=== PATIENT | female | born 1975 | race Caucasian/White ===

== ENCOUNTER 2018-09-10 06:52 | Observation (INO) | payer BC ==
[2018-09-07 11:00] VITALS: BMI 24.0
[2018-09-10] MEDS ORDERED: Midazolam HCl 2 mg/2 ml Vial ONE (07:54)
[2018-09-10] MEDS ORDERED: Fentanyl 100 MCG/2 ML VIAL ONE ×4 (07:54→11:32)
[2018-09-10 08:33] LABS: #Basophils 0.1 thou/uL (0.0-0.2); #Eosinphils 0.2 thou/uL (0.0-0.7); #Lymphocytes 1.9 thou/uL (1.20-3.40); #Monocytes 0.3 thou/uL (0.11-0.59); %Eosinophils 3.3 % (0.0-10.0); %Lymphocytes 28.7 % (21.0-51.0); %Monocytes 4.9 % (0.0-10.0); %Neutrophils 62.1 % (42.0-75.0); Hemoglobin 14.6 g/dL (12.0-16.0); Mean Corpuscular HGB CONC 33.4 g/dL (32.0-36.0); Mean Corpuscular Hemoglobin 31.9 pg (27.0-31.0); Mean Corpuscular Volume 95.4 fL (78.0-98.0); Mean Platelet Volume 9.1 fL (7.4-10.4); Platelet Count 207 thou/uL (130-400); RBC Distribution Width 10.6 % (11.5-14.5); Red Blood Cell (RBC) Count 4.57 mill/uL (4.20-5.40); White Blood Cell (WBC) Count 6.4 thou/uL (4.8-10.8)
[2018-09-10 08:52] LABS: Anion Gap 11 mmol/L (10-20); BUN (Urea Nitrogen) 11 mg/dL (7.0-18.7); Calc. Creatinine Clearance 108 mL/min (70-130); Calcium 8.5 mg/dL (7.8-10.44); Carbon Dioxide 22 mmol/L (22-29); Chloride 109 mmol/L (98-107); Estimated GFR-MDRD Greater than 90; Glucose 92 mg/dL (70-105); Potassium 4.4 mmol/L (3.5-5.1); Sodium 138 mmol/L (136-145)
[2018-09-10] MEDS ORDERED: Ondansetron PF 4 MG/2 ML Vial IVP PRN (10:51)
[2018-09-10] MEDS ORDERED: Morphine 4 MG/ML VIAL SLOW IVP PRN (10:51)
[2018-09-10] MEDS ORDERED: diphenhydrAMINE 50 MG CAP PO PRN (10:51)
[2018-09-10] MEDS ORDERED: Methocarbamol 500 MG TAB PO PRN (10:51)
[2018-09-10] MEDS ORDERED: HYDROcodone/Acetaminophen 7.5/325 mg Tablet PO PRN (10:51)
[2018-09-10] MEDS ORDERED: Zolpidem Tartrate 5 MG TAB PO PRN (10:51)
[2018-09-10] MEDS ORDERED: Bisacodyl 10 MG SUPP PR PRN (10:51)
[2018-09-10] MEDS ORDERED: Acetaminophen 500 MG TAB PO PRN (10:51)
[2018-09-10] MEDS ORDERED: traMADol HCl 50 MG TAB PO PRN (10:51)
[2018-09-10] MEDS ORDERED: Morphine 2 MG/ML SYRINGE SLOW IVP PRN (10:51)
[2018-09-10] MEDS ORDERED: Milk Of Magnesia 30 ML UDCUP PO PRN (10:51)
[2018-09-10] MEDS ORDERED: Promethazine HCl 25 MG/ML VIAL SLOW IVP PRN (11:18)
[2018-09-10] MEDS ORDERED: Promethazine HCl 25 MG/ML VIAL IM PRN (11:18)
[2018-09-10] MEDS ORDERED: Ondansetron HCl/PF 4 MG/2 ML Vial IVP PRN (11:18)
[2018-09-10] MEDS ORDERED: diphenhydrAMINE 50 MG/ML VIAL ONE (11:36)
[2018-09-10] MEDS ORDERED: Bupivacaine HCl 0.5%/Epinephrine 1:200,000/PF 30 ml Vial ONE (11:57)
[2018-09-10] MEDS: Dextrose 5 %-0.45 % NaCl 1,000 ML IV SCH ×2 (12:42→20:08)
[2018-09-10] MEDS: Ketorolac Tromethamine 30 MG/ML VIAL IVP SCH ×3 (13:00→23:02)
[2018-09-10] MEDS ORDERED: Ondansetron PF 4 MG/2 ML Vial ONE (13:18)
[2018-09-10] MEDS ORDERED: PROPOFOL 200 MG/20 ML VIAL ONE (13:18)
[2018-09-10] MEDS: CEFAZOLIN 2 GM in Premix Bag 1 BAG IVPB SCH ×2 (14:35→21:12)
--- NOTE | 2018-09-10 17:50 | OP ---
DATE OF PROCEDURE: 09/10/2018 PREOPERATIVE DIAGNOSIS: Left knee anterior cruciate ligament tear. POSTOPERATIVE DIAGNOSIS: Left knee anterior cruciate ligament tear. PROCEDURES PERFORMED: 1. Left knee exam under anesthesia. 2. Left knee arthroscopy with arthroscopically assisted anterior cruciate ligament reconstruction using an Achilles allograft tendon. TOOL SUPERVISOR: Pablo Wang PA-C. BLOOD LOSS: Minimal. COMPLICATIONS: None. ANESTHESIA: She did have a general anesthetic as well as preoperative block. IMPLANTS: To the knee; on the femur, we used a 7 x 25 metal interference screw and on the tibia, we used a 10 x 23 [employer] interference screw. We also used a bicortical screw with a soft tissue washer as backup fixation. DISPOSITION: She did go to recovery room in stable condition. INDICATIONS: A 43-year-old active female, who is presenting for ligament reconstruction after tearing her ligament, doing activities with her children. At this time, she wished to continue doing cutting and pivoting sports and wished to have the ligament reconstructed. DESCRIPTION OF PROCEDURE: After all appropriate consent forms were explained and signed, she was taken to the operative room and at this time was given general anesthetic. Exam under anesthesia confirmed a positive pivot shift. At this time, we placed a tourniquet on the left thigh and leg was placed in arthroscopic leg arriaza. The limb was then prepped and draped in standard surgical fashion. The limb was then exsanguinated and tourniquet taken up to 300 mmHg. Inferolateral portal was established, and scope was placed into the knee joint. A needle localization technique was then used to make a medial working portal. Diagnostic arthroscopy commenced in the notch. The ACL was found to be torn. Remnant was removed with the shaver. PCL was intact. Medial compartment showed the femur to have a small area of grade 2 changes. No significant unstable flaps were noted. This was less than 1 cm in diameter and toward the notch region. The tibial plateau was in good condition. The medial meniscus showed a small stable undersurface tear of the posterior horn. The superior aspect of the meniscus was completely intact. At this time, the lateral compartment was evaluated and found to be intact. Gutters were swept through, no loose bodies were noted and patellofemoral joint showed the patella to be in good condition. The trochlea, however, had some grade 2 and 3 changes centrally. At this time, a notchplasty was performed and the allograft was prepared on the back table. We then flexed the knee up and through the medial portal and [id number] guide, we used to place a pin up and out the anterolateral thigh. An 11-mm reamer was used to ream to a depth of nearly 30 mm. We then removed all loose bony cartilaginous debris from the knee joint. At this time, we stuck our tibial guide into the knee at 55 degrees. We then made a jeaneth on the skin. Blade was used to incise down through skin. Bovie was used to coagulate any brisk venous bleeding. The pin was then put up into the knee joint through the guide and at this time, the 11-mm reamer was then used to ream our tibial tunnel. Again, all loose bony cartilaginous debris was removed from the knee joint. The rasp and mayuri were used to smooth off any rough edges and at this time, an 11-mm dilator was used to dilate our femoral and tibial sides. Once this was done, a pin was placed up and out the anterolateral thigh again using this to pull a passing suture into the knee joint. The passing suture was pulled down the tibial tunnel and used to pull our graft up into the knee. We then fixated the femoral side with a 7 x 25 metal interference screw. The tibial side was then fixated with a 10 x 23 Bio[employer]posite interference screw. We then drilled, tapped, and placed a bicortical screw with a soft tissue washer to back this up. At this time, we put the camera back into the knee joint to make sure that the screw was not into the knee as well as making sure that the patient had no impingement of the graft through full range of motion. The scope was then removed. Knee was drained and at this time, excess graft was cut off distally. We then incorporated the graft into the surrounding soft tissues. Using some deep Vicryl and 2-0 Vicryl, nylon sutures were then used to close this small incision as well as our portals. Bulky sterile dressing was applied. Tourniquet was let down. Toes pinked up nicely. The patient was awakened, taken to recovery room in stable condition. All counts were correct at the end of the case and she did receive preoperative IV antibiotics. Job ID: [id number]
[2018-09-10] MEDS: HYDROcodone/Acetaminophen 7.5/325 mg Tablet PO PRN (20:10)
[2018-09-10] MEDS: Famotidine 20 MG TAB PO SCH (20:10)
[2018-09-10] MEDS ORDERED: Vancomycin HCl 1 GM in Premix Bag 1 BAG IVPB SCH (23:00)
[2018-09-11 04:26] VITALS: TEMP 98.7
[2018-09-11] MEDS: Ketorolac Tromethamine 30 MG/ML VIAL IVP SCH (05:21)
[2018-09-11] MEDS: Dextrose 5 %-0.45 % NaCl 1,000 ML IV SCH (07:17)
[2018-09-11 08:13] VITALS: BP 136/87
[2018-09-11] MEDS: HYDROcodone/Acetaminophen 7.5/325 mg Tablet PO PRN (10:05)
[2018-09-11] MEDS: Famotidine 20 MG TAB PO SCH (10:36)
--- NOTE | 2018-09-11 12:50 | DIS ---
DATE OF ADMISSION: 09/10/2018 DATE OF DISCHARGE: 09/11/2018 ADMISSION DIAGNOSIS: Left knee anterior cruciate ligament rupture. DISCHARGE DIAGNOSIS: Left knee anterior cruciate ligament rupture. PROCEDURE PERFORMED: Allograft arthroscopically-assisted anterior cruciate ligament reconstruction, left knee. CONSULTANTS: None. BRIEF CLINICAL HISTORY: Cathy is a 43-year-old white female, who was admitted to [facility], underwent the above elective procedure on date of admission without intra-, lisandra-, or post-operative complication. Her hospital course was unremarkable. At the time of discharge, the patient is afebrile. She is ambulatory with crutches in a nonweightbearing fashion, tolerating regular diet, voiding without difficulty. Her incision is clean and closed with no strike through. No bleeding. We will be happy yo see the patient on an as-needed basis between now and her next scheduled appointment in 2 to 3 weeks. CONDITION ON DISCHARGE: Stable. PROGNOSIS: Good. Job ID: [id number]
== END 2018-09-11 10:49 | disposition home or self-care (01) ==
LOC: SDC 06:52 → SURG B 11:56
PROVIDERS: ADMIT Orthopaedic Surgery; ATTEND Orthopaedic Surgery
PROC: 0MRP47Z Replacement of Left Knee Bursa and Ligament with Autologous Tissue Substitute, Percutaneous Endoscopic Approach (ICD-10-PCS; principal; 2018-09-10)
PROC: 3E0T3BZ Introduction of Anesthetic Agent into Peripheral Nerves and Plexi, Percutaneous Approach (ICD-10-PCS; 2018-09-10)
DX: S83.512A Sprain of anterior cruciate ligament of left knee, initial encounter (principal); S83.242A Other tear of medial meniscus, current injury, left knee, initial encounter; G89.18 Other acute postprocedural pain; X58.XXXA Exposure to other specified factors, initial encounter
CPT/HCPCS: 80048; 85025; 93005; 93010; 96365; 96366; 96367; 96375; 96376; C1713; G0378; J0670; J0690; J1200; J1885; J2250; J2405; J2704; J3010; J3370

== ENCOUNTER 2019-04-26 14:23 | Emergency (ER) | payer BC ==
[~2019-04-26 14:23] MED LIST: Iopamidol 370 76% 100 ML VIAL ONE
[2019-04-26] MEDS ORDERED: Lidocaine Viscous Sol 2% 15 ml UD Cup ONE (15:01)
[2019-04-26] MEDS ORDERED: Pantoprazole 40 MG VIAL ONE (15:01)
[2019-04-26] MEDS ORDERED: Mag-Al Plus 1200 MG/1200 MG/120 MG/30 ML UDCUP ONE (15:01)
[2019-04-26 15:27] LABS: #Basophils 0.1 thou/uL (0.0-0.2); #Eosinphils 0.2 thou/uL (0.0-0.7); #Lymphocytes 1.9 thou/uL (1.20-3.40); #Monocytes 0.4 thou/uL (0.11-0.59); #Neutrophils 2.8 thou/uL (1.40-6.50); %Basophils 1.5 % (0.0-1.0); %Eosinophils 3.3 % (0.0-10.0); %Monocytes 6.6 % (0.0-10.0); %Neutrophils 52.6 % (42.0-75.0); Mean Corpuscular HGB CONC 33.5 g/dL (32.0-36.0); Mean Corpuscular Hemoglobin 31.1 pg (27.0-31.0); Mean Corpuscular Volume 92.8 fL (78.0-98.0); Mean Platelet Volume 9.6 fL (7.4-10.4); Platelet Count 188 thou/uL (130-400); RBC Distribution Width 10.4 % (11.5-14.5); Red Blood Cell (RBC) Count 4.84 mill/uL (4.20-5.40); White Blood Cell (WBC) Count 5.3 thou/uL (4.8-10.8)
[2019-04-26 15:42] LABS: ALT (SGPT) 24 U/L (8-55); AST (SGOT) 25 U/L (5-34); Albumin 4.3 g/dL (3.5-5.0); Alkaline Phosphatase 50 U/L (40-110); Anion Gap 18 mmol/L (10-20); BUN (Urea Nitrogen) 12 mg/dL (7.0-18.7); Calc. Creatinine Clearance 0 mL/min (70-130); Calcium 8.7 mg/dL (7.8-10.44); Carbon Dioxide 20 mmol/L (22-29); Chloride 107 mmol/L (98-107); Estimated GFR-MDRD Greater than 90; Globulin 2.6 g/dL (2.4-3.5); Glucose 85 mg/dL (70-105); Lipase 12 U/L (8-78); Magnesium 1.9 mg/dL (1.6-2.6); Potassium 3.7 mmol/L (3.5-5.1); Protein, Total 6.9 g/dL (6.0-8.3); Sodium 141 mmol/L (136-145)
[2019-04-26 15:46] LABS: BHCG - Serum Negative (NEGATIVE); Pregs Control Background? CLEAR/WHITE (CLR/WHITE); Pregs Control Bar Appear? YES (CONTROL BAR)
--- NOTE | 2019-04-26 16:10 | CT ---
CT abdomen and pelvis with IV contrast. Oral contrast was not administered. INDICATIONS: Abdominal pain COMPARISON: None FINDINGS: Lung bases are clear Liver, spleen, and pancreas appear unremarkable. Several peripherally calcified gallstones are seen dependently in the gallbladder. No pericholecystic inflammation noted. Stomach and duodenum appear unremarkable. Adrenal glands appear normal. Kidneys appear unremarkable. Collecting structures and urinary bladder appear unremarkable. Small bowel loops are normal caliber and exhibit normal fold pattern. Appendix is identified and appears unremarkable. Colon is unremarkable. Aorta is normal caliber. No evidence of retroperitoneal or mesenteric adenopathy. Uterus is unremarkable. An IUD is seen in the endometrial cavity. Ring-enhancing cyst left ovary saravanan uring 1.7 cm, consistent with involuting follicle. Correlate with serum hCG. Subcutaneous tissues, abdominal wall, and muscular structures appear unremarkable. Osseous structures appear unremarkable. IMPRESSION: 1. Cholelithiasis 2. Ring-enhancing cystic lesion left adnexa, probably involuting left ovarian follicle. Correlate wit h serum hCG to exclude ectopic.
[2019-04-26 16:29] LABS: Bilirubin Negative (Negative); Blood, Urine Small (Negative); Clarity Clear (Clear); Glucose, Urine (Dipstick) Negative (Negative); Leukocyte Negative (Negative); Nitrite Negative (Negative); Protein, Urine (Dipstick) Negative (Neg-Trace); Urobilinogen 0.2 mg/dL (Less than 2)
[2019-04-26 16:30] LABS: Bacteria/HPF Rare-Few HPF (None Seen); WBC/HPF None Seen HPF (0-3)
== END 2019-04-26 16:33 | disposition home or self-care (01) ==
LOC: SCSER 14:23
DX: K29.70 Gastritis, unspecified, without bleeding (principal); K80.20 Calculus of gallbladder without cholecystitis without obstruction
CPT/HCPCS: 74177; 80053; 81003; 81015; 83690; 83735; 84484; 84703; 85025; 96374; C9113; Q9967